=== PATIENT | female | born 1975 | race Caucasian/White ===

== ENCOUNTER 2017-02-26 03:26 | Emergency (ER) | payer SELFPAY ==
[~2017-02-26] VITALS: Ht 157.5 cm; Wt 55.0 kg
[2017-02-26 03:46] VITALS: BP 105/59; PULSE 69; RESP 18; TEMP 98.1; O2SAT 98
[2017-02-26] MEDS ORDERED: ABIL30TA2 PO (04:05)
[2017-02-26] MEDS ORDERED: ZOLO100T PO (04:05)
[2017-02-26] MEDS ORDERED: BUSP15TA PO (04:05)
[2017-02-26 04:53] LABS: AUTOMATED NEUTROPHIL # 3.8 TH/MM3 (1.8-7.7); BASOPHIL # 0.1 TH/MM3 (0-0.2); BASOPHIL % 0.8 % (0.0-2.0); EOSINOPHIL # 0.1 TH/MM3 (0-0.4); HEMATOCRIT 35.5 % (35.0-46.0); HEMO FLAGS DIFF FINAL; LYMPH % 30.5 % (9.0-44.0); LYMPHOCYTE # 2.1 TH/MM3 (1.0-4.8); MEAN CELL VOLUME 86.6 FL (80.0-100.0); MEAN CORPUSCULAR HEMOGLOBIN 30.2 PG (27.0-34.0); MEAN CORPUSCULAR HGB CONC 34.8 % (32.0-36.0); MONO % 9.9 % (0.0-8.0); NEUT % 56.8 % (16.0-70.0); PLATELET COUNT 221 TH/MM3 (150-450); RED CELL DISTRIBUTION WIDTH 13.5 % (11.6-17.2); WHITE BLOOD COUNT 6.8 TH/MM3 (4.0-11.0)
[2017-02-26 05:18] LABS: ACETAMINOPHEN LESS THAN 2.0 MCG/ML (10.0-30.0); ALT (GPT) 65 U/L (10-53); ANION GAP 9 MEQ/L (5-15); AST (GOT) 37 U/L (15-37); BLOOD UREA NITROGEN 12 MG/DL (7-18); CHLORIDE 110 MEQ/L (98-107); GLOMERULAR FILTRATION RATE 99 ML/MIN (>89); POTASSIUM 3.3 MEQ/L (3.5-5.1); SODIUM (NA) 141 MEQ/L (136-145)
[2017-02-26 05:28] LABS: ALKALINE PHOSPHATASE 110 U/L (45-117); BETA HCG QUANT LESS THAN 1 MIU/ML (0-5); TOTAL BILIRUBIN ADULT 0.8 MG/DL (0.2-1.0)
--- NOTE | 2017-02-26 06:19 | PD ---
HPI Chief Complaint: Psychiatric Symptoms Time Seen by Provider: 03:53 Travel History International Travel<30 days: No Contact w/Intl Traveler<30days: No Traveled to known affect area: No History of Present Illness HPI The patient is a 41 year old female who presents to the [facility] emergency department with a history of being brought in as a Lorenzo act by the police prior to arrival. According to the Lorenzo act, the patient was found walking in the middle of the roadway at a very late time of day. The patient appeared confused and gave multiple different stories to the police. They were concerned about the patient's well being, therefore she was placed under a Lorenzo act and brought to the emergency department. The patient does have a history of bipolar disorder. She reports that she is taking her medications. She denies any suicidal or homicidal ideations. She denies having any auditory or visual hallucinations. She reports that she has been Lorenzo acted in the past. The patient reports to me that she is pointing to be going to rehabilitation in another state. She reports that she is supposed to get on a flight today. She is unsure where she is going. She reports that this was arranged for by her family. She reports that the rehabilitation is going to be done related to her history of methamphetamine abuse. I'm review of systems, the patient denies any recent fevers, cough, congestion, neck pain, chest pain, shortness of breath, abdominal pain, vomiting, diarrhea, urinary symptoms, or neurologic symptoms. [facility] Past Medical History Narrative Medical The patient's past medical history is significant for Bipolar disorder, pancreatitis, polysubstance abuse. Bipolar Disorder: Yes Tetanus Vaccination: < 5 Years ?: Not LMP: 02/10/2017 Menopausal: No Past Surgical History Narrative Surgical The patient's past surgical history is significant for cyst removed from pancreas, finger sx. Abdominal Surgery: Yes (cyst removed from pancrease) Cholecystectomy: Yes Social History Alcohol Use: No Tobacco Use: Yes (1ppd.) Substance Use: Yes (meth occas, thc occas) Allergies-Medications (Allergen,Severity, Reaction): Coded Allergies: No Known Allergies (Unverified , 02/26/17) Reported Meds & Prescriptions Reported Meds & Active Scripts Active Reported Buspirone (Buspirone HCl) 15 Mg Tab 15 Mg PO BID Abilify (Aripiprazole) 30 Mg Tab 30 Mg PO DAILY Zoloft (Sertraline HCl) 100 Mg Tab 100 Mg PO DAILY Review of Systems Except as stated in HPI: all other systems reviewed are Neg General / Constitutional: No: Fever Eyes: No: Visual changes HENT: No: Headaches Cardiovascular: No: Chest Pain or Discomfort Respiratory: No: Shortness of Breath Gastrointestinal: No: Abdominal Pain Genitourinary: No: Dysuria Musculoskeletal: No: Pain Skin: No Rash Neurologic: No: Weakness Psychiatric: Positive: Mood Disorder, Substance Abuse, No: Depression, Suicidal Ideations, Disorder of Thought, Homicidal Ideation Endocrine: No: Polydipsia Hematologic/Lymphatic: No: Easy Bruising Physical Exam Narrative General: The patient is a well-developed well-nourished female in no acute distress. Head and Neck exam: Head is normocephalic atraumatic. Eyes: Pupils are equal round and reactive to light. Nose: Midline septum with pink mucous membranes Mouth: Dentition unremarkable. Moist mucus membranes. Posterior oropharynx is not erythematous. No tonsillar hypertrophy. Uvula midline. Airway patent. Neck: No palpable lymphadenopathy. No nuchal rigidity. No thyromegaly. Cardiovascular: Regular rate and rhythm without murmurs, gallops, or rubs. Lungs: Clear to auscultation bilaterally. No wheezes, rhonchi, or rales. Abdomen: Soft, without tenderness to palpation in all 4 quadrants of the abdomen. No guarding, rebound, or rigidity. Normal bowel sounds are audible. Extremities: No clubbing, cyanosis, or edema. No calf tenderness on palpation. The patient reports having some musculoskeletal tenderness along the right trapezius. She reports that this began after she was placed in handcuffs by the police. There is no loss of range of motion. No crepitus. No step-off. No erythema or ecchymosis. Back: No spinous process tenderness to palpation. No costovertebral angle tenderness to palpation. Neurologic Exam: Grossly nonfocal. Skin Exam: No rash noted. Intact skin that is warm and dry. Data Data Last Documented VS Vital Signs Date Time Temp Pulse Resp B/P Pulse Ox O2 Delivery O2 Flow Rate FiO2 02/26/17 03:46 98.1 69 18 105/59 98 Orders Complete Blood Count With Diff (02/26/17 03:53) Comprehensive Metabolic Panel (02/26/17 03:53) Thyroid Stimulating Hormone (02/26/17 03:53) Urinalysis - C+S If Indicated (02/26/17 03:53) Iv Access Insert/Monitor (02/26/17 03:53) Ecg Monitoring (02/26/17 03:53) Beta Hcg (Quant/Titer) (02/26/17 03:53) Psych Screen (02/26/17 03:53) Drug Screen, Random Urine (02/26/17 03:53) Alcohol (Ethanol) (02/26/17 03:53) Salicylates (Aspirin) (02/26/17 03:53) Tylenol (Acetaminophen) (02/26/17 03:53) Acetaminophen (Tylenol) (02/26/17 06:30) Labs Laboratory Tests Test 02/26/17 04:00 White Blood Count 6.8 TH/MM3 Red Blood Count 4.10 MIL/MM3 Hemoglobin 12.3 GM/DL Hematocrit 35.5 % Mean Corpuscular Volume 86.6 FL Mean Corpuscular Hemoglobin 30.2 PG Mean Corpuscular Hemoglobin 34.8 % Concent Red Cell Distribution Width 13.5 % Platelet Count 221 TH/MM3 Mean Platelet Volume 9.1 FL Neutrophils (%) (Auto) 56.8 % Lymphocytes (%) (Auto) 30.5 % Monocytes (%) (Auto) 9.9 % Eosinophils (%) (Auto) 2.0 % Basophils (%) (Auto) 0.8 % Neutrophils # (Auto) 3.8 TH/MM3 Lymphocytes # (Auto) 2.1 TH/MM3 Monocytes # (Auto) 0.7 TH/MM3 Eosinophils # (Auto) 0.1 TH/MM3 Basophils # (Auto) 0.1 TH/MM3 CBC Comment DIFF FINAL Differential Comment Sodium Level 141 MEQ/L Potassium Level 3.3 MEQ/L Chloride Level 110 MEQ/L Carbon Dioxide Level 22.0 MEQ/L Anion Gap 9 MEQ/L Blood Urea Nitrogen 12 MG/DL Creatinine 0.66 MG/DL Estimat Glomerular Filtration 99 ML/MIN Rate Random Glucose 109 MG/DL Calcium Level 8.5 MG/DL Total Bilirubin 0.8 MG/DL Aspartate Amino Transf 37 U/L (AST/SGOT) Alanine Aminotransferase 65 U/L (ALT/SGPT) Alkaline Phosphatase 110 U/L Total Protein 7.2 GM/DL Albumin 3.4 GM/DL Thyroid Stimulating Hormone 1.970 uIU/ML 3rd Gen Human Chorionic Gonadotropin, LESS THAN 1 Quant MIU/ML Salicylates Level 2.3 MG/DL Acetaminophen Level LESS THAN 2.0 MCG/ML Ethyl Alcohol Level LESS THAN 3 MG/DL MDM Medical Decision Making Medical Screen Exam Complete: Yes Emergency Medical Condition: Yes Medical Record Reviewed: Yes Differential Diagnosis Acute psychosis, versus substance induced mood disorder Narrative Course During the course of the patients emergency department visit, the patients history, examination, and differential diagnosis were reviewed with the patient. The patient had IV access obtained and blood work sent for analysis. The patient had a psychiatric screen ordered. The patient's Lorenzo act was reviewed. The patient was made aware that she is awaiting evaluation by the psychiatric screener after she is medically cleared. The patient was given Tylenol for her right shoulder pain. Related to being placed in handcuffs. The patients laboratory studies were reviewed and remarkable for a CBC that is unremarkable. CMP is remarkable for a potassium of 3.3 which was supplemented orally, glucose 109, ALT 65, TSH 1.97, beta hCG is less than 1, TSH within normal limits, salicylate 2.3, acetaminophen less than 2, alcohol less than 3. The patient has been medically cleared for evaluation by the psychiatric screener under a Lorenzo act. Diagnosis Primary Impression: Altered mental status, unspecified Beverly Dougherty MD Feb 26, 2017 06:19
[2017-02-26] MEDS ORDERED: ACETAMINOPHEN 325 MG TAB PO ONE (06:30)
[2017-02-26] MEDS ORDERED: POTASSIUM CHLORIDE 20 MEQ CONTROLLED RELEASE TAB PO ONE (07:00)
[2017-02-26 07:09] VITALS: BP 122/68; PULSE 70; RESP 18; O2SAT 100
[2017-02-26 08:00] VITALS: BP 108/67; PULSE 63; RESP 18; TEMP 98.5; O2SAT 99
[2017-02-26 09:35] VITALS: BP 122/63; PULSE 72; RESP 18; O2SAT 98
[2017-02-26] MEDS ORDERED: OLANZapine IM 10 MG VIAL IM ONE ×2 (10:49→11:30)
[2017-02-26] MEDS ORDERED: REME15TA PO (11:05)
--- NOTE | 2017-02-26 11:28 | PD ---
HPI Chief Complaint: Psychiatric Symptoms Time Seen by Provider: 11:17 Travel History International Travel<30 days: No Contact w/Intl Traveler<30days: No Traveled to known affect area: No History of Present Illness HPI Patient is a 41-year-old female seen in J pod stating that she has chest pain. Patient reports it is worse with respirations. She states the pain is midsternal/upper chest wall pain. She reports it as burning. Denies any shortness of breath, nausea, headache. PFSH Past Medical History Bipolar Disorder: Yes Tetanus Vaccination: < 5 Years ?: Not LMP: 02/10/2017 Menopausal: No Past Surgical History Abdominal Surgery: Yes (cyst removed from pancrease) Cholecystectomy: Yes Social History Alcohol Use: No Tobacco Use: Yes (1ppd.) Substance Use: No Allergies-Medications (Allergen,Severity, Reaction): Coded Allergies: No Known Allergies (Unverified , 02/26/17) Reported Meds & Prescriptions Reported Meds & Active Scripts Active Reported Remeron (Mirtazapine) 15 Mg Tab 15 Mg PO HS Buspirone (Buspirone HCl) 15 Mg Tab 15 Mg PO BID Abilify (Aripiprazole) 30 Mg Tab 30 Mg PO DAILY Zoloft (Sertraline HCl) 100 Mg Tab 100 Mg PO DAILY Review of Systems Except as stated in HPI: all other systems reviewed are Neg HENT: No: Headaches Cardiovascular: Positive: Chest Pain or Discomfort Respiratory: Positive: Pleuritic Pain, No: Shortness of Breath Gastrointestinal: No: Nausea Physical Exam Narrative GENERAL: Developed, well-nourished, female. Resting comfortably in no acute distress. SKIN: Warm and dry. HEAD: Atraumatic. Normocephalic. EYES: Pupils equal and round. No scleral icterus. No injection or drainage. ENT: No nasal bleeding or discharge. Mucous membranes pink and moist. NECK: Trachea midline. No JVD. CARDIOVASCULAR: Regular rate and rhythm. No murmur noted. RESPIRATORY: No accessory muscle use. Clear to auscultation. Breath sounds equal bilaterally. GASTROINTESTINAL: Abdomen soft, non-tender, nondistended. Hepatic and splenic margins not palpable. MUSCULOSKELETAL: Extremities without clubbing, cyanosis, or edema. No obvious deformities. Pain is reproducible on palpation to anterior chest wall. NEUROLOGICAL: Awake and alert. No obvious cranial nerve deficits. Motor grossly within normal limits. Five out of 5 muscle strength in the arms and legs. Normal speech. PSYCHIATRIC: Appropriate mood and flat affect; insight and judgment normal. Data Data Last Documented VS Vital Signs Date Time Temp Pulse Resp B/P Pulse Ox O2 Delivery O2 Flow Rate FiO2 02/26/17 10:15 72 18 02/26/17 09:35 122/63 98 Room Air 02/26/17 08:00 98.5 Orders Complete Blood Count With Diff (02/26/17 03:53) Comprehensive Metabolic Panel (02/26/17 03:53) Thyroid Stimulating Hormone (02/26/17 03:53) Urinalysis - C+S If Indicated (02/26/17 03:53) Iv Access Insert/Monitor (02/26/17 03:53) Ecg Monitoring (02/26/17 03:53) Beta Hcg (Quant/Titer) (02/26/17 03:53) Psych Screen (02/26/17 03:53) Drug Screen, Random Urine (02/26/17 03:53) Alcohol (Ethanol) (02/26/17 03:53) Salicylates (Aspirin) (02/26/17 03:53) Tylenol (Acetaminophen) (02/26/17 03:53) Acetaminophen (Tylenol) (02/26/17 06:30) Potassium Chloride (Kcl) (02/26/17 07:00) Diet Regular Basic (02/26/17 Breakfast) Diet Regular Basic (02/26/17 Lunch) Electrocardiogram (02/26/17 ) Olanzapine Inj (Zyprexa Inj) (02/26/17 10:49) Olanzapine Inj (Zyprexa Inj) (02/26/17 11:30) Restraints Violent (02/26/17 11:23) Troponin I (02/26/17 11:24) Ckmb (Isoenzyme) Profile (02/26/17 11:24) CKMB (02/26/17 11:45) CKMB% (02/26/17 11:45) Diet Regular Basic (02/26/17 Dinner) Labs Laboratory Tests Test 02/26/17 02/26/17 04:00 11:45 White Blood Count 6.8 TH/MM3 Red Blood Count 4.10 MIL/MM3 Hemoglobin 12.3 GM/DL Hematocrit 35.5 % Mean Corpuscular Volume 86.6 FL Mean Corpuscular Hemoglobin 30.2 PG Mean Corpuscular Hemoglobin 34.8 % Concent Red Cell Distribution Width 13.5 % Platelet Count 221 TH/MM3 Mean Platelet Volume 9.1 FL Neutrophils (%) (Auto) 56.8 % Lymphocytes (%) (Auto) 30.5 % Monocytes (%) (Auto) 9.9 % Eosinophils (%) (Auto) 2.0 % Basophils (%) (Auto) 0.8 % Neutrophils # (Auto) 3.8 TH/MM3 Lymphocytes # (Auto) 2.1 TH/MM3 Monocytes # (Auto) 0.7 TH/MM3 Eosinophils # (Auto) 0.1 TH/MM3 Basophils # (Auto) 0.1 TH/MM3 CBC Comment DIFF FINAL Differential Comment Sodium Level 141 MEQ/L Potassium Level 3.3 MEQ/L Chloride Level 110 MEQ/L Carbon Dioxide Level 22.0 MEQ/L Anion Gap 9 MEQ/L Blood Urea Nitrogen 12 MG/DL Creatinine 0.66 MG/DL Estimat Glomerular Filtration 99 ML/MIN Rate Random Glucose 109 MG/DL Calcium Level 8.5 MG/DL Total Bilirubin 0.8 MG/DL Aspartate Amino Transf 37 U/L (AST/SGOT) Alanine Aminotransferase 65 U/L (ALT/SGPT) Alkaline Phosphatase 110 U/L Total Protein 7.2 GM/DL Albumin 3.4 GM/DL Thyroid Stimulating Hormone 1.970 uIU/ML 3rd Gen Human Chorionic Gonadotropin, LESS THAN 1 Quant MIU/ML Salicylates Level 2.3 MG/DL Acetaminophen Level LESS THAN 2.0 MCG/ML Ethyl Alcohol Level LESS THAN 3 MG/DL Total Creatine Kinase 144 U/L Creatine Kinase MB 2.1 NG/ML Troponin I LESS THAN 0.02 NG/ML MDM Medical Decision Making Medical Screen Exam Complete: Yes Emergency Medical Condition: Yes Interpretation(s) Laboratory Tests Test 02/26/17 02/26/17 04:00 11:45 White Blood Count 6.8 TH/MM3 Red Blood Count 4.10 MIL/MM3 Hemoglobin 12.3 GM/DL Hematocrit 35.5 % Mean Corpuscular Volume 86.6 FL Mean Corpuscular Hemoglobin 30.2 PG Mean Corpuscular Hemoglobin 34.8 % Concent Red Cell Distribution Width 13.5 % Platelet Count 221 TH/MM3 Mean Platelet Volume 9.1 FL Neutrophils (%) (Auto) 56.8 % Lymphocytes (%) (Auto) 30.5 % Monocytes (%) (Auto) 9.9 % Eosinophils (%) (Auto) 2.0 % Basophils (%) (Auto) 0.8 % Neutrophils # (Auto) 3.8 TH/MM3 Lymphocytes # (Auto) 2.1 TH/MM3 Monocytes # (Auto) 0.7 TH/MM3 Eosinophils # (Auto) 0.1 TH/MM3 Basophils # (Auto) 0.1 TH/MM3 CBC Comment DIFF FINAL Differential Comment Sodium Level 141 MEQ/L Potassium Level 3.3 MEQ/L Chloride Level 110 MEQ/L Carbon Dioxide Level 22.0 MEQ/L Anion Gap 9 MEQ/L Blood Urea Nitrogen 12 MG/DL Creatinine 0.66 MG/DL Estimat Glomerular Filtration 99 ML/MIN Rate Random Glucose 109 MG/DL Calcium Level 8.5 MG/DL Total Bilirubin 0.8 MG/DL Aspartate Amino Transf 37 U/L (AST/SGOT) Alanine Aminotransferase 65 U/L (ALT/SGPT) Alkaline Phosphatase 110 U/L Total Protein 7.2 GM/DL Albumin 3.4 GM/DL Thyroid Stimulating Hormone 1.970 uIU/ML 3rd Gen Human Chorionic Gonadotropin, LESS THAN 1 Quant MIU/ML Salicylates Level 2.3 MG/DL Acetaminophen Level LESS THAN 2.0 MCG/ML Ethyl Alcohol Level LESS THAN 3 MG/DL Total Creatine Kinase 144 U/L Creatine Kinase MB 2.1 NG/ML Troponin I LESS THAN 0.02 NG/ML Vital Signs Date Time Temp Pulse Resp B/P Pulse Ox O2 Delivery O2 Flow Rate FiO2 02/26/17 10:15 72 18 02/26/17 09:35 72 18 122/63 98 Room Air 02/26/17 08:00 98.5 63 18 108/67 99 Room Air 02/26/17 07:09 70 18 122/68 100 Room Air 02/26/17 03:46 98.1 69 18 105/59 98 Differential Diagnosis Chest wall pain versus NSTEMI versus pleurisy versus arrhythmia versus other Narrative Course Patient is a 41-year-old female evaluated in J pod a chief complaint of chest pain. Initial EKG shows normal sinus rhythm, pain is reproducible on palpation to anterior chest wall. Pain was reproducible on palpation to anterior chest wall. Obtained a CK-MB and troponin which were normal. Labs from 0400 this morning reviewed. Pain is likely related to chest wall pain. Patient is medically cleared at this time. Recommend ibuprofen or acetaminophen as needed and as directed for pain. Diagnosis Primary Impression: Altered mental status, unspecified Additional Impression: Chest wall pain Condition: Stable Gillian Cool Feb 26, 2017 11:17
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
[2017-02-26 12:20] LABS: CREATINE KINASE 144 U/L (26-192)
[2017-02-26 12:32] LABS: CKMB 2.1 NG/ML (0.5-3.6)
--- NOTE | 2017-02-26 14:50 | EKG ---
Date Performed: 02/26/2017 Time Performed: 09:55:51 PTAGE: 41 years EKG: Sinus rhythm NORMAL ECG NO PREVIOUS TRACING DOCTOR: Jag Schwartz Interpretating Date/Time 02/26/2017 14:48:35
[2017-02-26 18:36] VITALS: BP 113/56; PULSE 58; RESP 17; TEMP 98.8; O2SAT 96
[2017-02-26 22:12] VITALS: BP 103/51; PULSE 50; RESP 19; O2SAT 97
[2017-02-27 02:16] VITALS: BP 101/51; PULSE 58; RESP 18; O2SAT 99
[2017-02-27 06:23] VITALS: BP 107/58; PULSE 68; RESP 18; O2SAT 97
[2017-02-27 06:58] LABS: BLOOD, URINE NEG (NEG); COMMENT (UR) CULT NOT INDICATED; CULTURE IF INDICATED CULT NOT INDICATED; GLUCOSE,URINE NEG (NEG); KETONE, URINE 10 mg/dL (NEG); MUCUS URINE MANY /lpf (OCC); NITRITE,URINE NEG (NEG); SQUAMOUS EPITHELIAL CELL URINE 8 /hpf (0-5); URINE COLOR YELLOW (YELLW/STRAW)
[2017-02-27 07:00] LABS: AMPHETAMINE, URINE POS (NEG); BARBITURATES, URINE NEG (NEG); COCAINE, URINE NEG (NEG)
[2017-02-27 09:29] VITALS: BP 107/58; PULSE 68; RESP 18; O2SAT 97
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
== END 2017-02-27 11:51 | disposition home or self-care (01) ==
LOC: NEPE 03:26 → NEPJ 02-27 11:51
DX: F15.159 Other stimulant abuse with stimulant-induced psychotic disorder, unspecified (principal); F12.10 Cannabis abuse, uncomplicated; F31.9 Bipolar disorder, unspecified; F17.200 Nicotine dependence, unspecified, uncomplicated; R07.9 Chest pain, unspecified
CPT/HCPCS: 80053; 80307; 81001; 82550; 82552; 84443; 84484; 84702; 85025; 93005; 96372

== ENCOUNTER 2017-04-11 14:27 | Emergency (ER) | payer OTHER ==
[~2017-04-11] VITALS: Ht 157.5 cm; Wt 55.0 kg
[~2017-04-11 14:27] MED LIST: ABIL30TA2 PO; BUSP15TA PO; REME15TA PO; ZOLO100T PO
[2017-04-11 14:43] VITALS: BP 152/91; PULSE 95; RESP 20; TEMP 98; O2SAT 99
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
[2017-04-11 15:08] LABS: AUTOMATED NEUTROPHIL # 5.8 TH/MM3 (1.8-7.7); BASOPHIL # 0.1 TH/MM3 (0-0.2); BASOPHIL % 0.7 % (0.0-2.0); EOSINOPHIL % 0.5 % (0.0-4.0); HEMATOCRIT 37.2 % (35.0-46.0); HEMO FLAGS DIFF FINAL; LYMPH % 16.7 % (9.0-44.0); LYMPHOCYTE # 1.3 TH/MM3 (1.0-4.8); MEAN CELL VOLUME 87.1 FL (80.0-100.0); MEAN CORPUSCULAR HEMOGLOBIN 30.1 PG (27.0-34.0); MEAN CORPUSCULAR HGB CONC 34.5 % (32.0-36.0); MONO % 7.2 % (0.0-8.0); NEUT % 74.9 % (16.0-70.0); PLATELET COUNT 242 TH/MM3 (150-450); RED BLOOD COUNT 4.27 MIL/MM3 (4.00-5.30); RED CELL DISTRIBUTION WIDTH 13.6 % (11.6-17.2); WHITE BLOOD COUNT 7.8 TH/MM3 (4.0-11.0)
[2017-04-11 15:16] LABS: AMPHETAMINE, URINE POS (NEG); BARBITURATES, URINE NEG (NEG); COCAINE, URINE NEG (NEG)
[2017-04-11] MEDS ORDERED: HALOPERIDOL LACTATE 5 MG/ML AMP IM ONE (15:30)
[2017-04-11 15:33] LABS: ANION GAP 9 MEQ/L (5-15); AST (GOT) 147 U/L (15-37); BICARBONATE 23.9 MEQ/L (21.0-32.0); BLOOD UREA NITROGEN 8 MG/DL (7-18); CHLORIDE 111 MEQ/L (98-107); GLOMERULAR FILTRATION RATE 48 ML/MIN (>89); POTASSIUM 3.4 MEQ/L (3.5-5.1); SODIUM (NA) 144 MEQ/L (136-145)
[2017-04-11 15:34] LABS: ALT (GPT) 380 U/L (10-53)
[2017-04-11 15:37] LABS: ALKALINE PHOSPHATASE 124 U/L (45-117)
[2017-04-11] MEDS ORDERED: diphenhydrAMINE HCL 50 MG/ML VIAL IM ONE (16:00)
[2017-04-11] MEDS ORDERED: LORazepam 2 MG/ML VIAL IV PUSH ONE (16:00)
[2017-04-11 18:46] VITALS: BP 90/50; PULSE 66; RESP 18; O2SAT 96
[2017-04-11] MEDS ORDERED: OLANZapine IM 10 MG VIAL IM ONE (22:22)
[2017-04-11 22:59] VITALS: BP 92/58; PULSE 68; RESP 18; O2SAT 99
[2017-04-12 02:10] VITALS: BP 107/57; PULSE 58; RESP 19; O2SAT 100
[2017-04-12 06:30] VITALS: BP 101/58; PULSE 66; RESP 18; O2SAT 99
[2017-04-12 11:22] VITALS: BP 90/53; PULSE 54; RESP 18; O2SAT 96
[2017-04-12 15:13] VITALS: BP 105/53; PULSE 66; RESP 16; O2SAT 98
[2017-04-12 16:11] VITALS: BP 105/66; PULSE 66; RESP 16; O2SAT 98
--- NOTE | 2017-05-08 12:38 | PD ---
History of Present Illness Chief Complaint: Psychiatric Symptoms Travel History International Travel<30 Days: No Contact w/Intl Traveler<30days: No Known affected area: No Legal Status Legal Status: Lorenzo Act Lorenzo Act Signed By: Beronica Terry Lorenzo Act Comment: 2016 @ 1400 History of Present Illness: 41-year-old female brought in under a Lorenzo act for bizarre behavior and psychotic thinking. Patient's toxicology screen was positive for amphetamines. Patient admits to use of amphetamines. At this time she is no longer intoxicated and she is verbally breonna for safety. Her cognition is intact and she has no psychotic symptoms. She is competent to make this contract. She reports no suicidal or homicidal ideation, plan or intent. PFSH Past Medical History Bipolar Disorder: Yes Diminished Hearing: No Tetanus Vaccination: > 5 Years Influenza Vaccination: No ?: Not Menopausal: No Past Surgical History Abdominal Surgery: Yes (cyst removed from pancrease) Cholecystectomy: Yes Psychiatric History Psychiatric History Hx Psychiatric Treatment: HX OF BIPOLAR. HAS BEEN MED COMPLIANT. HOSPITALIZED AT [facility] A SHORT TIME AGO. SEES SOMEONE AT [facility] IN [place]. This physician is uncertain if the diagnosis of bipolar disorder is legitimate. In the face of amphetamine abuse, no conclusion can be drawn. patient truly has bipolar disorder due to her recent history of self-reported amphetamine abuse. History of Inpatient Treatment: Yes Social History Hx Alcohol Use: No Hx Tobacco Use: Yes Hx Substance Use: Yes (meth) Other Substances Used: PAST HISTORY PER BOYFRIEND Hx of Substance Use Treatment: No Allergies-Medications (Allergen,Severity, Reaction): Coded Allergies: No Known Allergies (Unverified , 02/26/17) Reported Meds & Prescriptions Reported Meds & Active Scripts Active Active Prescriptions or Reported Medications Unobtainable Review of Systems Except as stated in HPI: all other systems reviewed are Neg Exam Alert: Yes Marble: Person, Place, Date, Situation Mood: Calm Affect: Appropriate Speech: Clear Eye Contact: Normal Memory Intact: Immediate, Recent, Remote Insight/Judgement Adequate MDM Medical Decision Making Medical Record Reviewed: Yes Assessment/Plan This physician spoke with the patient's nurse. Patient's Lorenzo act is being lifted. She is no longer intoxicated and does not present as a danger to herself or others. Her cognition is intact and she is not psychotic. She is verbally breonna for safety. She does not meet criteria for inpatient psychiatric hospitalization. Diagnosis Primary Impression: Amphetamine abuse Departure Forms: Tests/Procedures Patient Instructions: General Instructions, Mood Disorders (ED), Medical Clearance for Psychiatric Care (ED) Additional Instructions: DX: Substance Induced Mood Disorder Please return to ED if symptoms worsen Prescriptions Unable to Obtain Active Prescriptions or Reported Meds Disposition: 01 DISCHARGE HOME Condition: Stable Tj Parrish MD May 08, 2017 12:37
== END 2017-04-12 17:58 | disposition home or self-care (01) ==
LOC: NEPC 14:27 → NEPJ 04-12 17:58
DX: F15.10 Other stimulant abuse, uncomplicated (principal); F17.200 Nicotine dependence, unspecified, uncomplicated; R74.8 Abnormal levels of other serum enzymes; F31.9 Bipolar disorder, unspecified; Z79.899 Other long term (current) drug therapy
CPT/HCPCS: 80053; 80307; 84703; 85025; 96372; 96374; 99284; J1200; J1630; J2060